=== PATIENT | male | born 1965 | race Caucasian/White ===

== ENCOUNTER 2020-12-06 05:40 | Outpatient (CLI) | payer BC ==
[~2020-12-06] VITALS: Ht 180.3 cm; Wt 103.5 kg
== END 2020-12-06 13:22 | disposition home or self-care (01) ==
LOC: PREOP 05:40
PROVIDERS: ATTEND Surgery
DX: Z01.818 Encounter for other preprocedural examination (principal)

== ENCOUNTER 2020-12-13 11:43 | Day surgery (SDC) | payer BC ==
[2020-12-13] MEDS ORDERED: LACTATED RINGERS 1,000 ML IV STA (11:55)
[2020-12-13 12:00] VITALS: BP 129/70
[2020-12-13] MEDS ORDERED: LACTATED RINGERS 1,000 ML IV ONE (12:02)
--- NOTE | 2020-12-13 12:26 | Progress Note-Pre Operative ---
Pre-Operative Progress Note H&P Reviewed The H&P was reviewed, patient examined and no changes noted. Time Seen by Provider: 12:24 Date H&P Reviewed: Dec 13, 2020 Time H&P Reviewed: 12:24 Pre-Operative Diagnosis: Screening colon SAMI REGAN DO Dec 13, 2020 12:26
[2020-12-13] MEDS ORDERED: MIDAZOLAM 2 MG/2 ML (VERSED) VIAL ONE (12:31)
[2020-12-13] MEDS ORDERED: PROPOFOL INJECTION 50 ML IV ONE (12:31)
[2020-12-13 13:10] VITALS: BP 129/85
[2020-12-13 13:15] VITALS: BP 133/79
--- NOTE | 2020-12-13 13:15 | Progress Note-Post Operative ---
Post-Operative Progess Note Surgeon (s)/Apprenticeship Representative (s) Surgeon SAMI REGAN DO Apprenticeship Representative: NIEVES Lomas Pre-Operative Diagnosis Screening colon Post-Operative Diagnosis Int hemorrhoids melanosis coli poor prep Procedure & Operative Findings Date of Procedure 12/13/20 Procedure Performed/Findings Colonoscopy After informed consent was obtained, the patient was brought to the endoscopy suite and placed in the bed in the left lateral decubitus position. He was administered IV sedation by the SALES CORRESPONDENCE CLERK, who then monitored his vitals the entire time, heart rate, blood pressure and pulse ox and the scope was inserted, started the colonoscopy. Pushed all the way into about 140 cm to get all the way to cecum, took a picture of the appendiceal orifice, noted the ileocecal valve and then slowly withdrew the scope, insufflating to look circumferentially at the langley starting in the cecum, up the ascending colon to the hepatic flexure, then down the transverse colon, splenic flexure, into the descending colon, down into the sigmoid and finally into the rectum, retroflexed in the rectal vault, saw some minimal internal hemorrhoids and took a picture of this. During the procedure saw some melanosis coli, he also had a poor prep and could not suction all of it out because of the large vegetable pieces. I don't think he had any large polyps but could have missed small ones and therefore will need a repeat colonoscopy in 5 yrs instead of 10. The patient tolerated the procedure and he recovered in the endoscopy suite. Anesthesia Type IV Sedation by SALES CORRESPONDENCE CLERK Estimated Blood Loss Estimated blood loss (mL): none Specimens/Packing Specimens Removed none SAMI REGAN DO Dec 13, 2020 13:15
--- NOTE | 2020-12-13 13:15 | Endoscopy Discharge Instruct ---
Endo Procedure/Findings Findings 1.: Internal Hemorrhoids 2.: Other Findings (Melanosis Coli) 3.: Other Findings (poor prep) Discharge Instructions - Activity: You might feel a little sleepy until tomorrow. This is due to the medicine you received to relax you. Until tomorrow, you should: NOT drive a car, operate machinery or power tools. NOT drink any alcoholic beverages. NOT make any important decisions or sign importortant papers. Do not return to work until tomorrow, unless otherwise instructed. Resume prev ious activities tomorrow. Diet: Start by taking liquids. If you tolerate liquids, advance to solid food. 1.: Colonscopy in 5 years Notify Physician - If you experience excessive bleeding, unusual abdominal pain, fever, or chest pain, contact your doctor immediately. SAMI REGAN DO Dec 13, 2020 13:15
[2020-12-13 13:20] VITALS: BP 133/79
[2020-12-13 13:50] VITALS: BP 134/81
[2020-12-13 14:05] VITALS: BP 134/81
--- NOTE | 2020-12-13 14:24 | Anesthesia-General Post-Op ---
MAC Patient Condition Mental Status/LOC: Same as Preop Cardiovascular: Satisfactory Nausea/Vomiting: Absent Respiratory: Satisfactory Pain: Controlled Complications: Absent Post Op Complications Complications None Follow Up Care/Instructions Patient Instructions None needed. Anesthesiology Discharge Order Discharge Order Patient is doing well, no complaints, stable vital signs, no apparent adverse anesthesia problems. No complications reported per nursing. BRENDA PEPE CRNA Dec 13, 2020 14:24
== END 2020-12-13 14:05 | disposition home or self-care (01) ==
LOC: ENDO 11:43
PROVIDERS: ATTEND Surgery
DX: Z12.11 Encounter for screening for malignant neoplasm of colon (principal); K64.8 Other hemorrhoids; K63.89 Other specified diseases of intestine; E66.9 Obesity, unspecified; Z68.31 Body mass index [BMI] 31.0-31.9, adult; Z79.899 Other long term (current) drug therapy